=== PATIENT | female | born 1940 | race Caucasian/White ===

== ENCOUNTER 2016-11-03 11:44 | Inpatient (IN) ==
--- NOTE | 2016-11-02 21:23 | Discharge Summary ---
<Lizzy Arriaga - Last Filed: 11/02/16 21:21> Date of Encounter: 11/02/16 - Discharge Diagnosis (1) Left rotator cuff tear arthropathy Priority: Primary Status: Acute (2) History of CVA (cerebrovascular accident) Priority: Secondary Status: Chronic (3) HLD (hyperlipidemia) Priority: Secondary Status: Chronic Qualifiers: Hyperlipidemia type: unspecified Qualified Code(s): E78.5 - Hyperlipidemia , unspecified (4) Hypertension Priority: Secondary Status: Chronic Qualifiers: Hypertension type: essential hypertension Qualified Code(s): I10 - Essential (primary) hypertension - Discharge Medications Home Medications: Amlodipine [Norvasc] 5 mg PO DAILY 02/14/15 [History] Antiox#10/Om3/Dha/Epa/Lut/Zeax [I-Caps with Lutein-[place] 3 Sfg] 1 each PO BID [History] Calcium Carbonate/Vitamin D3 [Calcium 600 + D Tablet] 1 each PO BID 02/14/15 [ History] Fexofenadine HCl 180 mg PO DAILY 02/14/15 [History] Folic Acid/Mv,Fe,Min [Centrum Multivitamin Tab Chew] 1 each PO DAILY 02/14/15 [ History] Glucosamine/Chondroitin Sulf A [Cvs Glucosamine-Chondroitin Cp] 2 each PO DAILY 02/14/15 [History] Hydrochlorothiazide [Microzide] 12.5 mg PO DAILY 02/14/15 [History] Hyoscyamine SL [Levsin Sl] 0.125 mg SL Q4HR 02/14/15 [History] Omeprazole [Prilosec] 20 mg PO DAILY 02/14/15 [History] Potassium Chloride [Klor-Con M20] 20 meq PO DAILY 02/14/15 [History] Lidocaine Patch [Lidoderm 5% patch] 1 each TP DAILY #30 adh..patch 11/02/16 [Rx] Losartan/HCTZ [Hyzaar 50-12.5 Tablet] 1 each PO DAILY 11/03/16 [History] Meloxicam [Mobic] 15 mg PO DAILY 11/03/16 [History] OxyCODONE/APAP 10/325 [Percocet 10/325 MG] 1 each PO Q6HR PRN 11/03/16 [History] Oxybutynin [Ditropan] 5 mg PO HS 11/03/16 [History] Oxycodone HCl [Oxycodone HCl ER] 30 mg PO Q12H 11/03/16 [History] PredniSONE [Sana] 5 mg PO DAILY 11/03/16 [History] Allergies/Adverse Reactions: Allergies Amoxicillin Allergy (Mild, Verified 02/14/15 07:55) Hives cephalexin [From Keflex] Allergy (Mild, Verified 02/14/15 07:55) Hives Cephalosporins Allergy (Mild, Verified 02/14/15 07:55) Hives meclizine Adverse Reaction (Mild, Verified 02/14/15 07:55) Nausea Primary care physician: Khadar Cheng DO - Patient Status Disposition: Home, Self-Care Condition: Good - Discharge Instructions Follow Up With: Benton Emmanuel MD [Partnered Physician] - Lizzy Arriaga PAC [Physician Patternmaker] - 11/13/16 3:00 pm Karan Azlu DO [Partnered Physician] - Khadar Cheng DO [Primary Care Provider] - 08/17/17 9:15 am Ash Willis MD [Partnered Physician] - - Hospital Course Hospital course: Ms. Robert is a 76 year old female - Time Spent with Patient Total time spent providing and/or coordinating discharge services: <Benton Emmanuel - Last Filed: 11/04/16 06:22> Date of Encounter: 11/04/16 Time of Encounter: 06:22 - Discharge Diagnosis (1) Hypertension Priority: Secondary Status: Chronic Qualifiers: Hypertension type: essential hypertension Qualified Code(s): I10 - Essential (primary) hypertension (2) Pain Priority: Secondary Status: Chronic (3) Left rotator cuff tear arthropathy Priority: Primary Status: Acute (4) History of CVA (cerebrovascular accident) Priority: Secondary Status: Chronic (5) HLD (hyperlipidemia) Priority: Secondary Status: Chronic Qualifiers: Hyperlipidemia type: unspecified Qualified Code(s): E78.5 - Hyperlipidemia , unspecified (6) Osteoporosis Priority: Secondary Status: Chronic Qualifiers: Osteoporosis type: age-related Presence of current pathological fracture: unspecified Qualified Code(s): M81.0 - Age-related osteoporosis without current pathological fracture Primary care physician: Khadar Cheng DO - Patient Status Functional capacity at discharge: uses cane/walker Overall status at discharge: patient is progressing back to baseline - Hospital Course Hospital course: Ms. Robert is a 76 year old female The patient had an uneventful postoperative course. They received antibiotics and physical therapy and were discharged in stable condition. There will follow -up in the office in 2 weeks. - Time Spent with Patient Total time spent providing and/or coordinating discharge services:
[2016-11-03] MEDS ORDERED: Clindamycin 900 MG/50 ML 900 MG/50 ML IV.SOLN IVPB ONE (12:21)
--- NOTE | 2016-11-03 12:23 | History & Physical Report ---
Date of Encounter: 11/03/16 Time of Encounter: 12:23 24 Hour HP Update - Instructions Instructions: If the History and Physical is less than 30 days old and was completed prior to A.M. admission and or procedure and has NOT been updated on calendar day of procedure please complete this update prior to performing procedure. - Update Patient reports changes in Medical Condition: No Changes in examination, assessment, or condition: No Changes in Medication: No Preop tests/diagnostics Reviewed: Yes Surgery Remains Indicated: Yes Consent for Planned Operative Procedure(s) Verified: Yes - Pre-Operative Checklist Preoperative Checklist Indicated: No Prophylactic Antibiotic Ordered: Yes Is VTE Prophylaxis Indicated?: Yes
[2016-11-03] MEDS ORDERED: Famotidine 20 MG/2 ML VIAL IVP ONE (12:29)
[2016-11-03] MEDS ORDERED: Ringers Solution, Lactated 1,000 ML IVC SCH ×2 (12:30→15:53)
--- NOTE | 2016-11-03 12:45 | Anesthesia Evaluation PreOp ---
Date of Encounter: 11/03/16 Time of Encounter: 12:40 - Past History Planned Operation: Left Total Shoulder Cardiac History: HTN, Hyperlipidemia Pulmonary History: Denies Any Significant HX CUSTOMER CONSULTANT History: Other (Chronic Pain...has Stimulator) Other Medical History: GERD, Other (IBS) Anesthesia History: No Prior Anesthetic Complications : No Alcohol Use: none Drug use: none Medications and Allergies Amlodipine [Norvasc] 5 mg PO DAILY 02/14/15 [History] Antiox#10/Om3/Dha/Epa/Lut/Zeax [I-Caps with Lutein-[facility] 3 Sfg] 1 each PO BID [History] Calcium Carbonate/Vitamin D3 [Calcium 600 + D Tablet] 1 each PO BID 02/14/15 [ History] Fexofenadine HCl 180 mg PO DAILY 02/14/15 [History] Folic Acid/Mv,Fe,Min [Centrum Multivitamin Tab Chew] 1 each PO DAILY 02/14/15 [ History] Gabapentin [Neurontin] 300 mg PO TID 02/14/15 [History] Glucosamine/Chondroitin Sulf A [Cvs Glucosamine-Chondroitin Cp] 2 each PO DAILY 02/14/15 [History] Hydrochlorothiazide [Microzide] 12.5 mg PO DAILY 02/14/15 [History] Hyoscyamine SL [Levsin Sl] 2 tab SL Q4HR 02/14/15 [History] Losartan Potassium [Cozaar] 50 mg PO DAILY 02/14/15 [History] Omeprazole [Prilosec] 20 mg PO DAILY 02/14/15 [History] Oxycodone HCl 5 - 10 mg PO Q4-6H PRN #40 NS 02/14/15 [Rx] Potassium Chloride [Klor-Con M20] 20 meq PO BID 02/14/15 [History] Acyclovir [Zovirax] 400 mg PO TID #15 capsule 02/23/15 [Rx] Lidocaine Patch [Lidoderm 5% patch] 1 each TP DAILY #30 adh..patch 11/02/16 [Rx] Allergies Amoxicillin Allergy (Mild, Verified 02/14/15 07:55) Hives cephalexin [From Keflex] Allergy (Mild, Verified 02/14/15 07:55) Hives Cephalosporins Allergy (Mild, Verified 02/14/15 07:55) Hives meclizine Adverse Reaction (Mild, Verified 02/14/15 07:55) Nausea - Meds/Allergy Pre-op Review Medications Reviewed: Yes Allergies Reviewed: Yes Beta Blockers on Current Med List: No Anesthesia Results - Labs Laboratory Tests 10/30/16 10/30/16 10:57 10:57 Hgb 12.1 Hct 37.4 Plt Count 184 Sodium 137 Potassium 3.9 BUN 22 H Creatinine 0.92 Anesthesia Exam O2 Sat Height 1.52 m Height 1.52 m Height 1.52 m Weight 65.771 kg Weight 65.771 kg Weight 65.771 kg O2 Sat by Pulse Oximetry 97 Vital Signs Temp Pulse Resp BP Pulse Ox 97.9 F 65 18 146/74 97 11/03/16 12:13 11/03/16 12:13 11/03/16 12:13 11/03/16 12:13 11/03/16 12:13 Height: 5'0 Weight: 145 lbs NPO (# of Hours): MN Pain Scale: 0 - HEENT Pupil (Motor): Pupils equal, EOMI Mallampati: II Teeth: Normal Oral Opening: Greater than 3 - CUSTOMER CONSULTANT LOC: Oriented CUSTOMER CONSULTANT Motor: Normal RUE, Normal LUE, Normal RLE, Normal LLE, Normal Face CUSTOMER CONSULTANT Sensory: Normal: RUE, LUE, RLE, LLE, Face - Cardiac Rhythm: Regular Murmur: None JVD: No Carotid Bruit: No - Pulmonary Breath Sounds: bilateral Clear Respiratory Effort: Symmetrical Anesthesia Assess/Plan ASA Score: [address] Scale for Level of Consciousness: Cooperative, oriented, and tranquil Anesthetic Plan: General, Regional Monitoring Plan: Standard Monitors Recovery Plan: PACU (Discussed GA and RA, agrees to proceed)
[2016-11-03] MEDS ORDERED: Ondansetron 4 MG/2 ML VIAL IVP PRN ×2 (13:01→15:53)
[2016-11-03] MEDS ORDERED: *HR* Labetalol 100 MG/20 ML MDV IVP PRN (13:01)
[2016-11-03] MEDS ORDERED: *HR* Propofol 200 MG/20 ML VIAL IVP ONE (13:17)
[2016-11-03] MEDS ORDERED: *HR* Midazolam HCl 2 MG/2 ML VIAL ONE (13:17)
[2016-11-03] MEDS ORDERED: *HR* FentaNYL (PF) 100 MCG/2 ML VIAL ONE (13:17)
[2016-11-03] MEDS ORDERED: Lidocaine -MPF 2% 2 ML VIAL ONE (13:21)
[2016-11-03] MEDS ORDERED: ROPIVACAINE HCL/PF 0.5% 30 ML VIAL ONE (13:22)
--- NOTE | 2016-11-03 13:57 | Anesthesia Procedures ---
Date of Encounter: 11/03/16 Time of Encounter: 12:45 Procedures: Anesthesia - Nerve Block Procedure Date: 11/03/16 Time: 13:40 Pre-op Diagnosis: Left Shoulder Arthropathy Surgical Procedure: Left Total Shoulder Replacement Checklist: Correct Patient Identifier Correct side: Left Blood Thinner: No Monitor Applied: EKG, BP, Pulse Oximetry Supplemental Oxygen via Nasal Cannula (L/min): 2 Sedation: Versed (mg): 2 Indication: Post Op Analgesia Pre-op Neuro Deficits: No Block Type: Supraclavicular Catheter placed: No Depth at skin (cm): 2 Sterile Technique: Yes Ultrasound used: Yes Anatomy identified: Yes Visual spread of Local: Yes Neuro Stimulation: No Blood on Needle Aspiration: No Smooth Injection of Local: Yes Pain with Injection of Local: No Prep: Chlorhexadine Needle: 22 x 50 mm Stimuplex Local: Tetracaine (40), Ropivacaine (0.5%) Volume (cc): 30 Number of Attempts: 1 Complications: None/effective block Vitals: Vital Signs/O2 Sat/Glucose, Most Current Temp Pulse Resp BP Pulse Ox 11/03/16 13:45 62 103/52 97 11/03/16 13:31 66 130/61 95 11/03/16 12:13 97.9 F 65 18 146/74 97
[2016-11-03] MEDS ORDERED: Dexamethasone 4 MG/ML VIAL ONE (14:11)
[2016-11-03] MEDS ORDERED: Ondansetron 4 MG/2 ML VIAL ONE (14:11)
[2016-11-03] MEDS ORDERED: EPHEDrine 50 MG/ML VIAL ONE (14:17)
--- NOTE | 2016-11-03 14:52 | Orthopedic Operative Note ---
Date of procedure: 11/03/16 Pre-op diagnosis: Shoulder cuff tear arthropathy Post-op diagnosis: same Procedure: Procedure: Left Total Shoulder Replacment Reverse, Estimated blood loss: 200 cc Hardware:Arthrex Mall glenoid baseplate, 2 4.5 screws. 1 6.5 screw, 36+4 glenosphere, 6 humeral stem, poly insert 3 Exam Under anesthesia: Full motion and stability Procedural Notes: poor quality and caliber of glenoid irrepairable subscap and supraspinatus Operative procedure: The patient was brought to the operating room and placed on the operating room table. After general anesthesia was administered the operative shoulder was examined. Findings were noted. The patient was placed in the modified beachchair position. All pressure points were padded appropriately. And the head was stabilized in the neutral position. The operative extremity was prepped and draped in the sterile surgical fashion. The patient received IV antibiotics prior to skin incision. A standard deltopectoral approach was made to the operative shoulder. Incision was made to the skin and subcutaneous tissue,hemo stasis was obtained with Bovie cautery. Using careful blunt dissection the cephalic vein was identified and mobilized medially. The deltopectoral interval was developed and the clavipectoral fascia was incised. The subscap was released off the lesser tuberosity and tagged with #2 FiberWire suture it was irreparable. The humerus was dislocated patient noted to have irreparable tear supraspinatus tendon, and the humeral cut was made along the anatomic neck. Anterior and posterior Bankart retractors were placed to expose the glenoid. The glenoid was of small caliber and poor quality. The glenoid guide was seated and the centering hole was made. It took some manipulation to obtain purchase and stable fixation of the glenoid component. It was reamed with the appropriate reamer. The small was seated and secured with (2) 4.5 screws and one 6.5 screw. The baseplate was irrigated and dried and the early 6+4 Glenosphere was seated and secured with the Gould taper. The Gould taper was tested and found to be secure the humerus was redislocated and prepared with the diaphyseal reamers, followed by a broaching process up to the appropriate size 6 in the patient's anatomic version. The metaphyseal reamer was then utilized. Trial reduction found the shoulder to be relocatable. Trial components were removed. The appropriate 6 stem was impacted in place in the patient's anatomic version. Trial reduction found the shoulder to be relocatable and stable with the appropriate 3. Trial component was removed and the real 3 Sara was seated and secured the shoulder was reduced. The shoulder had excellent motion and excellent stability and no evidence of dislocation. The deep tissue was irrigated with pulse irrigation. The subscap was irreparable. The deltopectoral interval was closed with a running #1 PDS suture , subcutaneous tissue was irrigated and closed with 0 PDS suture, the skin was closed with skin isiah. The patient was placed in a sterile dressing, abduction brace and extubated. The patient was then transferred to the recovery room in stable condition. Anesthesia: RUDY Surgeon: Benton Emmanuel Medical Or Surgical Instrument Maker: Tanya Vu Condition: stable Disposition: PACU
--- NOTE | 2016-11-03 15:35 | Anesthesia Evaluation Post Op ---
Date of Encounter: 11/03/16 Time of Encounter: 15:35 - Vital Signs Vital Signs: Vital Signs/O2 Sat/Glucose, Most Recent Temp Pulse Resp BP Pulse Ox 97.9 F 78 16 137/60 97 11/03/16 15:07 11/03/16 15:27 11/03/16 15:27 11/03/16 15:27 11/03/16 15:27 - Lungs Lungs: Clear Ascult./Percussion - Airway Airway: Non-obstructed - Cardiovascular Regular Rate, Baseline Rhythm - Mental Status Mental Status: Alert & Oriented, Answers Appropriately - Pain Pain Scale: 0 Pain Scale used: Numeric (1 - 10) - Nausea Vomiting Nausea Vomiting: Not Present - Hydration Hydration: Tolerates oral liquids, Has not voided Notes: 11/03/16 15:35 naac - Discharge PostOp Status: Transfer Patient to floor
[2016-11-03] MEDS ORDERED: Acetaminophen 325 MG TABLET PO PRN (15:53)
[2016-11-03] MEDS ORDERED: Temazepam 15 MG CAPSULE PO PRN (15:53)
[2016-11-03] MEDS ORDERED: *HR* HYDROmorphone (PF) 1 MG/ML SYRINGE IVP PRN (15:53)
[2016-11-03] MEDS ORDERED: Naloxone 0.4 MG/ML INJ IVP PRN (15:53)
[2016-11-03] MEDS ORDERED: Sennosides 8.6 MG TABLET PO PRN (15:53)
[2016-11-03] MEDS ORDERED: MOM Conc 10 ML UD.LIQ PO PRN (15:53)
[2016-11-03] MEDS ORDERED: *HR* OxyCODONE Immed Rel 5 MG TABLET PO PRN ×2 (15:53→16:02)
[2016-11-03] MEDS: *HR* OxyCODONE ER (12 HR) 10 MG TABLET PO SCH (16:50)
[2016-11-03] MEDS: Hyoscyamine SL 0.125 MG TAB.SUBL SL SCH ×2 (16:56→20:30)
[2016-11-03] MEDS ORDERED: *HR* Enoxaparin 30 MG/0.3 ML SYRINGE SQ SCH (18:00)
[2016-11-03] MEDS: *HR* Enoxaparin 30 MG/0.3 ML SYRINGE SQ SCH (18:00)
[2016-11-03] MEDS: *HR* OxyCODONE Immed Rel 5 MG TABLET PO PRN (20:29)
[2016-11-03] MEDS: [UNRECOGNIZED DRUG - OTHER] PO SCH (20:30)
[2016-11-03] MEDS: CALCIUM PO SCH (20:30)
[2016-11-03] MEDS: [UNRECOGNIZED DRUG - OTHER] PO SCH (20:30)
[2016-11-03] MEDS: Clindamycin 900 MG/50 ML 900 MG/50 ML IV.SOLN IVPB SCH (22:05)
[2016-11-04] MEDS: Hyoscyamine SL 0.125 MG TAB.SUBL SL SCH ×3 (00:03→08:22)
[2016-11-04] MEDS: *HR* OxyCODONE ER (12 HR) 10 MG TABLET PO SCH (04:10)
[2016-11-04 05:16] LABS: Hematocrit 31.3 % (35.3-44.9); Hemoglobin 10.5 g/dL (11.5-15.4)
[2016-11-04] MEDS: *HR* Enoxaparin 30 MG/0.3 ML SYRINGE SQ SCH (05:51)
[2016-11-04] MEDS: Clindamycin 900 MG/50 ML 900 MG/50 ML IV.SOLN IVPB SCH (05:52)
--- NOTE | 2016-11-04 06:24 | Orthopedics Progress Note ---
Date of Encounter: 11/04/16 Time of Encounter: 06:23 - Assessment and Plan (1) Hypertension Current Visit: No Status: Chronic Qualifiers: Hypertension type: essential hypertension Qualified Code(s): I10 - Essential (primary) hypertension (2) Pain Current Visit: No Status: Chronic (3) Left rotator cuff tear arthropathy Current Visit: Yes Status: Acute (4) History of CVA (cerebrovascular accident) Current Visit: Yes Status: Chronic (5) HLD (hyperlipidemia) Current Visit: Yes Status: Chronic Qualifiers: Hyperlipidemia type: unspecified Qualified Code(s): E78.5 - Hyperlipidemia , unspecified (6) Osteoporosis Current Visit: Yes Status: Chronic Qualifiers: Osteoporosis type: age-related Presence of current pathological fracture: unspecified Qualified Code(s): M81.0 - Age-related osteoporosis without current pathological fracture Subjective Interval history: Patient was seen this morning doing well without complaints. Afebrile vital signs stable. Operative extremity: Neurovascularly intact Dressing clean dry and intact Calves nontender Assessment and plan: Continue with postoperative care Hematocrit 31 discharged today Objective Vital signs: Vital Signs Temp Pulse Resp BP Pulse Ox 11/04/16 03:15 97.6 F 71 16 128/69 99 11/04/16 00:13 98.3 F 78 15 99/58 96 11/03/16 19:00 97.3 F L 81 15 104/62 94 11/03/16 18:04 98.2 F 70 10 130/74 99 11/03/16 16:52 97.3 F L 71 14 114/66 99 11/03/16 16:35 97.4 F L 70 13 114/59 98 11/03/16 15:58 98.1 F 75 14 117/66 98 11/03/16 15:46 97.3 F L 76 16 125/62 96 11/03/16 15:37 97.4 F L 70 16 123/62 97 11/03/16 15:27 78 16 137/60 97 11/03/16 15:17 86 16 144/65 97 11/03/16 15:07 97.9 F 72 16 137/65 97 11/03/16 13:45 62 103/52 97 11/03/16 13:31 66 130/61 95 11/03/16 12:13 97.9 F 65 18 146/74 97 Intake and Output 11/03/16 11/03/16 11/04/16 15:59 23:59 07:59 Intake Total 50 / 50 50 / 50 Output Total 200 / 200 Balance -150 / -150 50 / 50 Intake: IV Fluids 50 / 50 50 / 50 Cleocin 900 MG/50 ML 900 50 / 50 50 / 50 mg In 50 ml @ 50 mls/hr IVPB Q8H JANES Rx#: [id number] Output: Estimated Blood Loss 200 / 200 Other: # Voids 1 Weight 65.771 kg - Labs CBC & BMP: 11/04/16 04:17 Labs: Abnormal lab results Hgb 10.5 g/dL (11.5-15.4) L D 11/04/16 04:17 Hct 31.3 % (35.3-44.9) L 11/04/16 04:17 - VTE Documentation of Mechanical Device: Venous foot pump, device Consult Discharge Plan - Plan Referrals: Benton Emmanuel MD [Partnered Physician] - 12/03/16 4:35 pm Lizzy Arriaga, HERMINIO [Physician Laser/Electro Optics Technician] - 11/13/16 3:00 pm Karan Azul DO [Partnered Physician] - 12/01/16 3:05 pm Khadar Cheng DO [Primary Care Provider] - 08/17/17 9:15 am Ash Willis MD [Partnered Physician] - 08/17/17 9:15 am
[2016-11-04 06:56] VITALS: BP 105/61
[2016-11-04] MEDS: [UNRECOGNIZED DRUG - OTHER] PO SCH (08:22)
[2016-11-04] MEDS: CALCIUM PO SCH (08:22)
[2016-11-04] MEDS: [UNRECOGNIZED DRUG - OTHER] PO SCH (08:22)
[2016-11-04] MEDS ORDERED: Multivit/Ca/Min/Fe/FA 1 TAB TABLET PO SCH (09:00)
[2016-11-04] MEDS ORDERED: Loratadine 10 MG TABLET PO SCH (09:00)
[2016-11-04] MEDS ORDERED: [UNRECOGNIZED DRUG - OTHER] PO SCH (09:00)
[2016-11-04] MEDS ORDERED: Losartan/HCTZ 50-12.5 TABLET PO SCH (09:00)
[2016-11-04] MEDS ORDERED: predniSONE 5 MG TABLET PO SCH (09:00)
[2016-11-04] MEDS ORDERED: GLUCOSAMINE PO SCH (09:00)
[2016-11-04] MEDS ORDERED: hydroCHLOROthiazide 25 MG TABLET PO SCH (09:00)
[2016-11-04] MEDS ORDERED: amLODIPine 5 MG TABLET PO SCH (09:00)
[2016-11-04] MEDS: *HR* OxyCODONE Immed Rel 5 MG TABLET PO PRN (09:20)
== END 2016-11-04 11:00 | disposition home or self-care (01) | DRG 483 ==
LOC: SAMDAY 11:44 → 3NENU 15:52
PROVIDERS: ADMIT Orthopaedic Surgery; ATTEND Orthopaedic Surgery

== ENCOUNTER 2016-11-17 08:12 | Inpatient (IN) ==
[2016-11-17] MEDS ORDERED: Ringers Solution, Lactated 1,000 ML IVC SCH ×2 (10:00→20:32)
[2016-11-17] MEDS: *HR* HYDROmorphone 2 MG/ML SYRINGE IVP PRN ×2 (10:22→13:58)
--- NOTE | 2016-11-17 16:50 | Anesthesia Evaluation PreOp ---
Date of Encounter: 11/17/16 Time of Encounter: 16:48 - Past History Planned Operation: revision l tsr Cardiac History: HTN, Hyperlipidemia Pulmonary History: Denies Any Significant HX JANITOR CUSTODIAN History: Other (chronic pain, scs) Other Medical History: GERD Anesthesia History: No Prior Anesthetic Complications, Past Anesthesia Alcohol Use: none Drug use: none Medications and Allergies Amlodipine [Norvasc] 5 mg PO DAILY 02/14/15 [History] Antiox#10/Om3/Dha/Epa/Lut/Zeax [I-Caps with Lutein-[place] 3 Sfg] 1 each PO BID [History] Calcium Carbonate/Vitamin D3 [Calcium 600 + D Tablet] 1 each PO BID 02/14/15 [ History] Fexofenadine HCl 180 mg PO DAILY 02/14/15 [History] Folic Acid/Mv,Fe,Min [Centrum Multivitamin Tab Chew] 1 each PO DAILY 02/14/15 [ History] Glucosamine/Chondroitin Sulf A [Cvs Glucosamine-Chondroitin Cp] 2 each PO DAILY 02/14/15 [History] Hydrochlorothiazide [Microzide] 12.5 mg PO DAILY 02/14/15 [History] Hyoscyamine SL [Levsin Sl] 0.125 mg SL Q4HR 02/14/15 [History] Omeprazole [Prilosec] 20 mg PO DAILY 02/14/15 [History] Potassium Chloride [Klor-Con M20] 20 meq PO DAILY 02/14/15 [History] Lidocaine Patch [Lidoderm 5% patch] 1 each TP DAILY #30 adh..patch 11/02/16 [Rx] Losartan/HCTZ [Hyzaar 50-12.5 Tablet] 1 each PO DAILY 11/03/16 [History] Meloxicam [Mobic] 15 mg PO DAILY 11/03/16 [History] OxyCODONE/APAP 10/325 [Percocet 10/325 MG] 1 each PO Q6HR PRN 11/03/16 [History] Oxybutynin [Ditropan] 5 mg PO HS 11/03/16 [History] Oxycodone HCl [Oxycodone HCl ER] 30 mg PO Q12H 11/03/16 [History] PredniSONE [Sana] 5 mg PO DAILY 11/03/16 [History] Estrogens, Conjugated [Premarin Cream] 1 appl TP AD 11/17/16 [History] Gabapentin [Neurontin] 400 mg PO TID 11/17/16 [History] Allergies Amoxicillin Allergy (Mild, Verified 02/14/15 07:55) Hives cephalexin [From Keflex] Allergy (Mild, Verified 02/14/15 07:55) Hives Cephalosporins Allergy (Mild, Verified 02/14/15 07:55) Hives meclizine Adverse Reaction (Mild, Verified 02/14/15 07:55) Nausea - Meds/Allergy Pre-op Review Medications Reviewed: Yes Allergies Reviewed: Yes Beta Blockers on Current Med List: No Anesthesia Results - Labs Laboratory Tests 10/30/16 10/30/16 11/04/16 10:57 10:57 04:17 Hgb 10.5 L D Hct 31.3 L PT 10.2 INR 1.0 APTT 29.8 Sodium 137 Potassium 3.9 Creatinine 0.92 - Imaging EKG: report reviewed (pace rhythm) Anesthesia Exam Vital Signs/O2 Sat/Glucose, Most Current Temp Pulse Resp BP Pulse Ox 11/17/16 14:51 98.4 F 68 18 129/74 93 Height: 1.52 Weight: 74 NPO (# of Hours): >8 - HEENT Pupil (Motor): Pupils equal, EOMI Mallampati: II Teeth: Normal Oral Opening: Greater than 3 - JANITOR CUSTODIAN LOC: Oriented JANITOR CUSTODIAN Motor: Normal RUE, Normal LUE, Normal RLE, Normal LLE, Normal Face JANITOR CUSTODIAN Sensory: Normal: RUE, LUE, RLE, LLE, Face - Cardiac Rhythm: Regular Murmur: None - Pulmonary Breath Sounds: bilateral Clear Respiratory Effort: Symmetrical Anesthesia Assess/Plan ASA Score: 3 Modified Weiner Scale for Level of Consciousness: Cooperative, oriented, and tranquil Anesthetic Plan: General, Regional Monitoring Plan: Standard Monitors Recovery Plan: PACU
[2016-11-17] MEDS ORDERED: Clindamycin 900 MG/50 ML 900 MG/50 ML IV.SOLN IVPB ONE (17:10)
[2016-11-17] MEDS ORDERED: *HR* Midazolam HCl 2 MG/2 ML VIAL ONE (17:14)
[2016-11-17] MEDS ORDERED: *HR* FentaNYL (PF) 100 MCG/2 ML VIAL ONE (17:14)
[2016-11-17] MEDS ORDERED: *HR* Propofol 200 MG/20 ML VIAL IVP ONE (17:14)
[2016-11-17] MEDS ORDERED: Lidocaine -MPF 4% 5 ML AMPUL ONE (17:15)
[2016-11-17] MEDS ORDERED: Ondansetron 4 MG/2 ML VIAL ONE (17:15)
[2016-11-17] MEDS ORDERED: Lidocaine -MPF 2% 2 ML VIAL ONE (17:15)
[2016-11-17] MEDS ORDERED: Tetracaine/PF 20 MG/2 ML AMPUL ONE (17:17)
[2016-11-17] MEDS ORDERED: ROPIVACAINE HCL/PF 0.5% 30 ML VIAL ONE (17:17)
--- NOTE | 2016-11-17 17:44 | Anesthesia Procedures ---
Date of Encounter: 11/17/16 Time of Encounter: 16:45 Procedures: Anesthesia - Nerve Block Procedure Date: 11/17/16 Time: 17:30 Pre-op Diagnosis: Aseptic Loosening Left Total Shoulder Surgical Procedure: Revision Left Total Shoulder Checklist: Correct Patient Identifier Correct side: Left Blood Thinner: No Monitor Applied: EKG, BP, Pulse Oximetry Supplemental Oxygen via Nasal Cannula (L/min): 2 Sedation: Versed (mg): 1 Sedation: Fentanyl (mcg): 50 Indication: Post Op Analgesia Pre-op Neuro Deficits: No Block Type: Supraclavicular Catheter placed: No Depth at skin (cm): 2 Sterile Technique: Yes Ultrasound used: Yes Anatomy identified: Yes Visual spread of Local: Yes Neuro Stimulation: No Blood on Needle Aspiration: No Smooth Injection of Local: Yes Pain with Injection of Local: No Prep: Chlorhexadine Needle: 22 x 50 mm Stimuplex Local: Tetracaine (40), Ropivacaine (0.5%) Volume (cc): 30 Number of Attempts: 1 Complications: None/effective block Vitals: Vital Signs/O2 Sat/Glucose, Most Current Temp Pulse Resp BP Pulse Ox 11/17/16 14:51 98.4 F 68 18 129/74 93
[2016-11-17] MEDS ORDERED: EPHEDrine 50 MG/ML VIAL ONE (18:28)
[2016-11-17] MEDS ORDERED: *HR* Phenylephrine 10 MG/ML VIAL ONE (18:29)
--- NOTE | 2016-11-17 19:04 | Orthopedic Operative Note ---
Date of procedure: 11/17/16 Pre-op diagnosis: Intractable left shoulder pain, glenoid fixation failure Post-op diagnosis: same Procedure: Procedure: Left Total Shoulder Replacment Reverse to a hemiarthroplasty with a CTA head Estimated blood loss: 100 cc Hardware: 6 humeral stem, CTA adapter, 44 CTA head Exam Under anesthesia: Well-healed incision no swelling or erythema Procedural Notes: Complete loss of fixation of the glenoid component with displacement anterior medial Operative procedure: The patient was brought to the operating room and placed on the operating room table. After general anesthesia was administered the patient was placed in the modified beachchair position. All pressure points were padded appropriately. And the head was stabilized in the neutral position. The operative extremity was prepped and draped in the sterile surgical fashion after the isiah from her previous shoulder surgery was removed. The patient received IV antibiotics prior to skin incision. A standard deltopectoral approach was made to the operative shoulder through the old incision, the incision was made through the skin and subcutaneous tissue , hemo stasis was obtained with Bovie cautery. Using careful blunt dissection the cephalic vein was identified and mobilized medially. The deltopectoral interval was developed the glenoid component was palpated underneath the conjoined tendon was removed with a grasper without difficulty. The humerus was dislocated and the humeral stem was removed without difficulty. Extensive examination of the glenoid revealed findings that were noted at the previous surgery which were small caliber glenoid now there was significant disruption from the loss of fixation with no significant anterior cortex. Decision at this point was made to convert the patient to a hemiarthroplasty with a CTA head. The humerus was broached and 40 degrees of retroversion to a size 6. Trial reduction revealed good stability with a 44 head. Trials were removed and real implants were seated and secured with the 44 CTA head. Patient had good stability and good motion. The deep tissue was irrigated with pulse irrigation. The deltopectoral interval was closed with a running #1 PDS suture, subcutaneous tissue was irrigated and closed with 0 PDS suture, the skin was closed with skin isiah. The patient was placed in a sterile dressing, abduction brace and extubated. The patient was then transferred to the recovery room in stable condition. Anesthesia: GETA Surgeon: Benton Emmanuel Condition: stable Disposition: PACU
--- NOTE | 2016-11-17 19:07 | Discharge Summary ---
Date of Encounter: 11/20/16 Time of Encounter: 07:51 - Discharge Diagnosis (1) Intractable pain Priority: Primary Status: Acute (2) Loosening of shoulder joint prosthesis Priority: Primary Status: Acute Comments: Patient with complete loss of fixation and displacement of glenoid component. Patient noted to have significant osteoporosis at the time of initial surgery. Qualifiers: Encounter type: subsequent encounter Qualified Code(s): T84.038D - Mechanical loosening of other internal prosthetic joint, subsequent encounter; Z96.619 - Presence of unspecified artificial shoulder joint (3) Hypertension Priority: Secondary Status: Chronic Qualifiers: Hypertension type: unspecified secondary hypertension Qualified Code(s): I15.9 - Secondary hypertension, unspecified; I15 - Secondary hypertension (4) History of CVA (cerebrovascular accident) Priority: Secondary Status: Chronic (5) HLD (hyperlipidemia) Priority: Secondary Status: Chronic Qualifiers: Hyperlipidemia type: unspecified Qualified Code(s): E78.5 - Hyperlipidemia , unspecified (6) Osteoporosis Priority: Secondary Status: Chronic Qualifiers: Osteoporosis type: unspecified Presence of current pathological fracture: unspecified Qualified Code(s): M81.0 - Age-related osteoporosis without current pathological fracture (7) Acute blood loss anemia Priority: Primary Status: Acute - Discharge Medications Home Medications: Amlodipine [Norvasc] 5 mg PO DAILY 02/14/15 [History] Antiox#10/Om3/Dha/Epa/Lut/Zeax [I-Caps with Lutein-[place] 3 Sfg] 1 each PO BID [History] Calcium Carbonate/Vitamin D3 [Calcium 600 + D Tablet] 1 each PO BID 02/14/15 [ History] Fexofenadine HCl 180 mg PO DAILY 02/14/15 [History] Folic Acid/Mv,Fe,Min [Centrum Multivitamin Tab Chew] 1 each PO DAILY 02/14/15 [ History] Glucosamine/Chondroitin Sulf A [Cvs Glucosamine-Chondroitin Cp] 2 each PO DAILY 02/14/15 [History] Hydrochlorothiazide [Microzide] 12.5 mg PO DAILY 02/14/15 [History] Hyoscyamine SL [Levsin Sl] 0.125 mg SL Q4HR 02/14/15 [History] Omeprazole [Prilosec] 20 mg PO DAILY 02/14/15 [History] Potassium Chloride [Klor-Con M20] 20 meq PO DAILY 02/14/15 [History] Lidocaine Patch [Lidoderm 5% patch] 1 each TP DAILY #30 adh..patch 11/02/16 [Rx] Losartan/HCTZ [Hyzaar 50-12.5 Tablet] 1 each PO DAILY 11/03/16 [History] Meloxicam [Mobic] 15 mg PO DAILY 11/03/16 [History] OxyCODONE/APAP 10/325 [Percocet 10/325 MG] 1 each PO Q6HR PRN 11/03/16 [History] Oxybutynin [Ditropan] 5 mg PO HS 11/03/16 [History] Oxycodone HCl [Oxycodone HCl ER] 30 mg PO Q12H 11/03/16 [History] PredniSONE [Sana] 5 mg PO DAILY 11/03/16 [History] Estrogens, Conjugated [Premarin Cream] 1 appl TP AD 11/17/16 [History] Gabapentin [Neurontin] 400 mg PO TID 11/17/16 [History] Allergies/Adverse Reactions: Allergies Amoxicillin Allergy (Mild, Verified 02/14/15 07:55) Hives cephalexin [From Keflex] Allergy (Mild, Verified 02/14/15 07:55) Hives Cephalosporins Allergy (Mild, Verified 02/14/15 07:55) Hives meclizine Adverse Reaction (Mild, Verified 02/14/15 07:55) Nausea Date of admission: 11/17/16 14:09 Primary care physician: Khadar Cheng DO Consults: 11/17/16 12:09 Consult to [facility] [CONS] Routine Reason for SW Consult: d/c planning 11/17/16 14:29 Consult to Pastoral Services [CONS] Routine Comment: - Patient Status Disposition: Home, Self-Care Condition: Good Functional capacity at discharge: independent ambulation Overall status at discharge: patient is progressing back to baseline - Discharge Instructions Follow Up With: Khadar Cheng DO [Primary Care Provider] - - Hospital Course Hospital course: Ms. Robert is a 76 year old female The patient had an uneventful postoperative course. They received antibiotics and physical therapy and were discharged in stable condition. There will follow -up in the office in 2 weeks. - Time Spent with Patient Total time spent providing and/or coordinating discharge services: - VTE Documentation of Mechanical Device: Venous foot pump, device
[2016-11-17 19:22] LABS: Hematocrit 32.3 % (35.3-44.9); Hemoglobin 10.9 g/dL (11.5-15.4)
[2016-11-17] MEDS ORDERED: Ketorolac 30 MG/ML VIAL ONE (19:36)
[2016-11-17] MEDS ORDERED: Acetaminophen IV 1,000 MG/100 ML INFUS..BTL ONE (19:36)
[2016-11-17] MEDS ORDERED: Gabapentin 300 MG CAPSULE ONE (19:54)
--- NOTE | 2016-11-17 20:08 | Anesthesia Evaluation Post Op ---
Date of Encounter: 11/17/16 Time of Encounter: 20:06 - Vital Signs Vital Signs: See Nursing notes. (Computer difficulties prevent importing vitals into this note) - Lungs Lungs: Clear Ascult./Percussion - Airway Airway: Non-obstructed - Cardiovascular Baseline Rhythm - Mental Status Mental Status: Alert & Oriented, Answers Appropriately - Pain Pain Scale: 7 (Chronic Pain pt resting, appearing comfortable and in no apparent distress) Pain Scale used: Numeric (1 - 10) - Nausea Vomiting Nausea Vomiting: Not Present - Hydration Hydration: Ice chips, Has not voided - Discharge PostOp Status: Transfer Patient to floor Anes Supervising Prov Stmt: Pt seen/evaluated, VSS and pt has met criteria for discharge to home. - MD Kings
[2016-11-17] MEDS ORDERED: Naloxone 0.4 MG/ML INJ IVP PRN (20:32)
[2016-11-17] MEDS ORDERED: MOM Conc 10 ML UD.LIQ PO PRN (20:32)
[2016-11-17] MEDS ORDERED: Sennosides 8.6 MG TABLET PO PRN (20:32)
[2016-11-17] MEDS ORDERED: *HR* HYDROmorphone 2 MG/ML SYRINGE IVP PRN (20:32)
[2016-11-17] MEDS ORDERED: Ondansetron 4 MG/2 ML VIAL IVP PRN (20:32)
[2016-11-17] MEDS ORDERED: Temazepam 15 MG CAPSULE PO PRN (20:32)
[2016-11-17] MEDS ORDERED: OXYCODONE HCL 30 MG PO SCH (20:32)
[2016-11-17] MEDS ORDERED: Estrogens, Conjugated CREAM 30 GM TUBE TP SCH (20:32)
[2016-11-17] MEDS: [UNRECOGNIZED DRUG - MIXTURE] PO SCH (21:10)
[2016-11-17] MEDS: Calcium 600 + D PO SCH (21:10)
[2016-11-17] MEDS: OXYCODONE PO SCH (21:14)
[2016-11-17] MEDS: Clindamycin 900 MG/50 ML 900 MG/50 ML IV.SOLN IVPB SCH (23:41)
[2016-11-18] MEDS: *HR* OxyCODONE/APAP 10/325 TABLET PO SCH ×6 (01:00→20:50)
[2016-11-18] MEDS: *HR* Enoxaparin 30 MG/0.3 ML SYRINGE SQ SCH ×2 (05:02→18:24)
--- NOTE | 2016-11-18 06:26 | Orthopedics Progress Note ---
Date of Encounter: 11/18/16 Time of Encounter: 06:25 - Assessment and Plan (1) Intractable pain Current Visit: Yes Status: Acute (2) Loosening of shoulder joint prosthesis Current Visit: Yes Status: Acute Qualifiers: Encounter type: subsequent encounter Qualified Code(s): T84.038D - Mechanical loosening of other internal prosthetic joint, subsequent encounter; Z96.619 - Presence of unspecified artificial shoulder joint (3) Hypertension Current Visit: No Status: Chronic Qualifiers: Hypertension type: unspecified secondary hypertension Qualified Code(s): I15.9 - Secondary hypertension, unspecified; I15 - Secondary hypertension (4) History of CVA (cerebrovascular accident) Current Visit: No Status: Chronic (5) HLD (hyperlipidemia) Current Visit: No Status: Chronic Qualifiers: Hyperlipidemia type: unspecified Qualified Code(s): E78.5 - Hyperlipidemia , unspecified (6) Osteoporosis Current Visit: No Status: Chronic Qualifiers: Osteoporosis type: unspecified Presence of current pathological fracture: unspecified Qualified Code(s): M81.0 - Age-related osteoporosis without current pathological fracture Subjective Interval history: Patient was seen this morning doing well without complaints. Afebrile vital signs stable. Operative extremity: Neurovascularly intact Dressing clean dry and intact Calves nontender Assessment and plan: Continue with postoperative care Hematocrit 32 Objective Vital signs: Vital Signs Temp Pulse Resp BP Pulse Ox 11/18/16 06:22 98.4 F 83 14 110/60 95 11/18/16 04:59 98.7 F 81 18 113/67 94 11/18/16 00:57 96 11/18/16 00:56 98.1 F 72 14 94/56 96 11/17/16 23:27 97.8 F 90 14 119/71 98 11/17/16 22:39 97.7 F 74 12 104/52 98 11/17/16 21:48 97.7 F 73 14 102/49 97 11/17/16 21:16 97.7 F 75 14 122/65 98 11/17/16 20:40 97.6 F 74 15 106/65 99 11/17/16 14:51 98.4 F 68 18 129/74 93 Intake and Output 11/17/16 11/17/16 11/18/16 15:59 23:59 07:59 Intake Total 100 / 100 50 / 50 Output Total 350 / 350 Balance 100 / 100 -300 / -300 Intake: IV Fluids 50 / 50 Cleocin Premix 900 MG/50 50 / 50 ML 900 mg In 50 ml @ 50 mls/hr IVPB Q8HR JANES Rx#: [id number] Oral 100 / 100 Output: Urine 350 / 350 Other: # Voids 3 Weight 74.474 kg - Labs CBC & BMP: 11/17/16 19:16 Labs: Abnormal lab results Hgb 10.9 g/dL (11.5-15.4) L 11/17/16 19:16 Hct 32.3 % (35.3-44.9) L 11/17/16 19:16 - VTE Documentation of Mechanical Device: Venous foot pump, device Consult Discharge Plan - Plan Referrals: Khadar Cheng DO [Primary Care Provider] -
[2016-11-18 06:33] LABS: Hematocrit 29.2 % (35.3-44.9); Hemoglobin 9.5 g/dL (11.5-15.4)
[2016-11-18] MEDS: Clindamycin 900 MG/50 ML 900 MG/50 ML IV.SOLN IVPB SCH (07:45)
[2016-11-18] MEDS: amLODIPine 5 MG TABLET PO SCH (07:47)
[2016-11-18] MEDS: Loratadine 10 MG TABLET PO SCH (07:48)
[2016-11-18] MEDS: Losartan/HCTZ 50-12.5 TABLET PO SCH (07:48)
[2016-11-18] MEDS: hydroCHLOROthiazide 25 MG TABLET PO SCH (07:48)
[2016-11-18] MEDS: Multivit/Ca/Min/Fe/FA 1 TAB TABLET PO SCH (07:48)
[2016-11-18] MEDS: predniSONE 5 MG TABLET PO SCH (07:48)
[2016-11-18] MEDS: CHONDROITIN PO SCH (07:49)
[2016-11-18] MEDS: Calcium 600 + D PO SCH ×2 (07:49→20:51)
[2016-11-18] MEDS: GLUCOSAMINE PO SCH (07:49)
[2016-11-18] MEDS: [UNRECOGNIZED DRUG - MIXTURE] PO SCH ×2 (07:49→20:51)
[2016-11-18] MEDS: OXYCODONE PO SCH ×3 (09:17→22:30)
[2016-11-18] MEDS ORDERED: Ketorolac 30 MG/ML VIAL IVP PRN (19:27)
[2016-11-18] MEDS ORDERED: Gabapentin 300 MG CAPSULE PO PRN (19:27)
[2016-11-19] MEDS: *HR* OxyCODONE/APAP 10/325 TABLET PO SCH ×7 (00:20→23:50)
[2016-11-19 05:24] LABS: Hematocrit 25.9 % (35.3-44.9); Hemoglobin 8.8 g/dL (11.5-15.4)
[2016-11-19] MEDS: *HR* Enoxaparin 30 MG/0.3 ML SYRINGE SQ SCH ×2 (05:32→17:31)
--- NOTE | 2016-11-19 08:16 | Orthopedics Progress Note ---
Date of Encounter: 11/19/16 Time of Encounter: 08:15 - Assessment and Plan (1) Intractable pain Current Visit: Yes Status: Acute (2) Loosening of shoulder joint prosthesis Current Visit: Yes Status: Acute Qualifiers: Encounter type: subsequent encounter Qualified Code(s): T84.038D - Mechanical loosening of other internal prosthetic joint, subsequent encounter; Z96.619 - Presence of unspecified artificial shoulder joint (3) Hypertension Current Visit: No Status: Chronic Qualifiers: Hypertension type: unspecified secondary hypertension Qualified Code(s): I15.9 - Secondary hypertension, unspecified; I15 - Secondary hypertension (4) History of CVA (cerebrovascular accident) Current Visit: No Status: Chronic (5) HLD (hyperlipidemia) Current Visit: No Status: Chronic Qualifiers: Hyperlipidemia type: unspecified Qualified Code(s): E78.5 - Hyperlipidemia , unspecified (6) Osteoporosis Current Visit: No Status: Chronic Qualifiers: Osteoporosis type: unspecified Presence of current pathological fracture: unspecified Qualified Code(s): M81.0 - Age-related osteoporosis without current pathological fracture Subjective Interval history: Patient was seen this morning doing well without complaints. Afebrile vital signs stable. Operative extremity: Neurovascularly intact Dressing clean dry and intact Calves nontender Assessment and plan: Continue with postoperative care Hematocrit 25 2 units PRBC Objective Vital signs: Vital Signs Temp Pulse Resp BP Pulse Ox 11/19/16 06:57 98.3 F 73 16 117/58 95 11/19/16 03:34 98 F 76 15 113/61 94 11/18/16 23:41 99.2 F 76 20 122/68 95 11/18/16 19:24 98 F 77 16 112/71 94 11/18/16 14:00 98.7 F 76 16 97/61 97 11/18/16 12:02 110/58 11/18/16 11:00 107/61 11/18/16 10:21 97.7 F 84 16 95/58 93 Intake and Output 11/18/16 11/19/16 11/19/16 23:59 07:59 15:59 Intake Total 100 / 100 Balance 100 / 100 Intake: Oral 100 / 100 Other: Meal Dinner Percent of Meal Consumed 75% - Labs CBC & BMP: 11/19/16 05:01 Labs: Abnormal lab results Hgb 8.8 g/dL (11.5-15.4) L 11/19/16 05:01 Hct 25.9 % (35.3-44.9) L 11/19/16 05:01 - VTE Documentation of Mechanical Device: Venous foot pump, device Consult Discharge Plan - Plan Referrals: Khadar Cheng DO [Primary Care Provider] -
[2016-11-19] MEDS: Multivit/Ca/Min/Fe/FA 1 TAB TABLET PO SCH (08:17)
[2016-11-19] MEDS: Loratadine 10 MG TABLET PO SCH (08:17)
[2016-11-19] MEDS: Losartan/HCTZ 50-12.5 TABLET PO SCH (08:17)
[2016-11-19] MEDS: hydroCHLOROthiazide 25 MG TABLET PO SCH (08:17)
[2016-11-19] MEDS: CHONDROITIN PO SCH (08:18)
[2016-11-19] MEDS: amLODIPine 5 MG TABLET PO SCH (08:18)
[2016-11-19] MEDS: Calcium 600 + D PO SCH ×2 (08:18→21:22)
[2016-11-19] MEDS: [UNRECOGNIZED DRUG - MIXTURE] PO SCH ×2 (08:18→21:22)
[2016-11-19] MEDS: predniSONE 5 MG TABLET PO SCH (08:18)
[2016-11-19] MEDS: GLUCOSAMINE PO SCH (08:18)
[2016-11-19] MEDS ORDERED: 0.9 % Sodium Chloride 250 ML ONE (09:04)
[2016-11-19] MEDS: OXYCODONE PO SCH ×2 (10:06→21:27)
[2016-11-20] MEDS: *HR* OxyCODONE/APAP 10/325 TABLET PO SCH ×2 (04:20→07:37)
[2016-11-20] MEDS: *HR* Enoxaparin 30 MG/0.3 ML SYRINGE SQ SCH (05:43)
[2016-11-20 06:32] VITALS: BP 123/68
--- NOTE | 2016-11-20 07:53 | Orthopedics Progress Note ---
Date of Encounter: 11/20/16 Time of Encounter: 07:53 - Assessment and Plan (1) Intractable pain Current Visit: Yes Status: Acute (2) Loosening of shoulder joint prosthesis Current Visit: Yes Status: Acute Qualifiers: Encounter type: subsequent encounter Qualified Code(s): T84.038D - Mechanical loosening of other internal prosthetic joint, subsequent encounter; Z96.619 - Presence of unspecified artificial shoulder joint (3) Hypertension Current Visit: No Status: Chronic Qualifiers: Hypertension type: unspecified secondary hypertension Qualified Code(s): I15.9 - Secondary hypertension, unspecified; I15 - Secondary hypertension (4) History of CVA (cerebrovascular accident) Current Visit: No Status: Chronic (5) HLD (hyperlipidemia) Current Visit: No Status: Chronic Qualifiers: Hyperlipidemia type: unspecified Qualified Code(s): E78.5 - Hyperlipidemia , unspecified (6) Osteoporosis Current Visit: No Status: Chronic Qualifiers: Osteoporosis type: unspecified Presence of current pathological fracture: unspecified Qualified Code(s): M81.0 - Age-related osteoporosis without current pathological fracture (7) Acute blood loss anemia Current Visit: Yes Status: Acute Subjective Interval history: Patient was seen this morning doing well without complaints. Afebrile vital signs stable. Operative extremity: Neurovascularly intact Dressing clean dry and intact Calves nontender Assessment and plan: Continue with postoperative care Discharged today Objective Vital signs: Vital Signs Temp Pulse Resp BP Pulse Ox 11/20/16 06:31 98.3 F 64 18 123/68 94 11/19/16 23:46 98.0 F 60 16 118/65 93 11/19/16 20:33 98.1 F 63 15 120/65 94 11/19/16 15:43 98.4 F 65 16 131/77 96 11/19/16 14:53 98.1 F 65 14 120/69 94 11/19/16 11:25 98.4 F 65 16 114/66 96 11/19/16 11:06 97.5 F L 63 16 100/62 95 11/19/16 10:23 97.8 F 68 16 104/67 96 11/19/16 08:13 66 110/66 Intake and Output 11/19/16 11/19/16 11/20/16 15:59 23:59 07:59 Intake Total 900 / 900 Output Total 450 / 450 400 / 400 Balance 450 / 450 -400 / -400 Intake: Oral 600 / 600 Blood Product 300 / 300 Rbcs Leuko Poor As-1 300 / 300 Unit [id number] Output: Urine 450 / 450 400 / 400 Other: # Voids 1 - Labs CBC & BMP: 11/19/16 05:01 Labs: Abnormal lab results Hgb 8.8 g/dL (11.5-15.4) L 11/19/16 05:01 Hct 25.9 % (35.3-44.9) L 11/19/16 05:01 - VTE Documentation of Mechanical Device: Venous foot pump, device Consult Discharge Plan - Plan Referrals: Khadar Cheng DO [Primary Care Provider] -
[2016-11-20] MEDS: amLODIPine 5 MG TABLET PO SCH (09:35)
[2016-11-20] MEDS: Multivit/Ca/Min/Fe/FA 1 TAB TABLET PO SCH (09:35)
[2016-11-20] MEDS: hydroCHLOROthiazide 25 MG TABLET PO SCH (09:35)
[2016-11-20] MEDS: OXYCODONE PO SCH (09:36)
[2016-11-20] MEDS: [UNRECOGNIZED DRUG - MIXTURE] PO SCH (09:36)
[2016-11-20] MEDS: GLUCOSAMINE PO SCH (09:36)
[2016-11-20] MEDS: Loratadine 10 MG TABLET PO SCH (09:36)
[2016-11-20] MEDS: CHONDROITIN PO SCH (09:36)
[2016-11-20] MEDS: predniSONE 5 MG TABLET PO SCH (09:36)
[2016-11-20] MEDS: Calcium 600 + D PO SCH (09:36)
[2016-11-20] MEDS: Losartan/HCTZ 50-12.5 TABLET PO SCH (09:36)
== END 2016-11-20 11:12 | disposition home or self-care (01) | DRG 483 ==
LOC: SAMDAY 08:12 → 3NENU 09:13
PROVIDERS: ADMIT Orthopaedic Surgery; ATTEND Orthopaedic Surgery